=== PATIENT | female | born 2000 | race African-American/Black ===

== ENCOUNTER 2021-12-20 19:21 | Emergency (ER) | payer OTHER, SELFPAY ==
[2021-12-20 19:26] VITALS: BP 120/92; PULSE 88; RESP 16; TEMP 36.7
[2021-12-20 20:02] LABS: Basophils Percent Auto 0.3 % (0.2-1.2); Hematocrit 36.7 % (37.0-47.0); Hemoglobin 12.5 g/dL (12.0-15.0); Immature Granulocyte Absolute 0.02 K/mm3 (0.00-0.031); Immature Granulocyte Percent A 0.3 % (0-0.5); Lymphocytes Absolute Auto 1.01 K/mm3 (0.9-3.2); Lymphocytes Percent Auto 17.4 % (18.3-44.2); Mean Corpuscular HGB Conc 34.1 g/dl (32-36); Mean Corpuscular Volume 88.2 fl (80-100); Mean Platelet Volume 8.7 fl (7.4-10.4); Monocytes Absolute Auto 0.1 K/mm3 (0.1-0.6); Monocytes Percent Auto 2.2 % (2.6-8.5); Neutrophils Absolute Auto 4.6 K/mm3 (1.3-6.7); Neutrophils Percent Auto 79.8 % (45.5-73.1); Platelet Count Result 335 k/mm3 (150-375); Red Blood Count 4.16 M/mm3 (4.2-5.4); White Blood Count 5.8 K/mm3 (4.5-10.0)
[2021-12-20 20:13] LABS: Alanine Aminotransferase 20 U/L (4-35); Albumin Level 4.4 g/dL (3.5-5.1); Alkaline Phosphatase 68 U/L (38-126); Anion Gap 12 mmol/L (8-16); Aspartate Amino Transferase 33 U/L (14-36); Bilirubin,Total 0.2 mg/dL (0.2-1.3); Blood Urea Nitrogen 7 mg/dL (7-17); Calcium 9.2 mg/dL (8.4-10.2); Carbon Dioxide 18 mmol/L (22-30); Chloride 108 mmol/L (98-107); Estimated CRCL calculation 99 ml/min; Estimated Glomerular Filt Rate > 60; Glucose 173 mg/dL (65-110); Lipase 34 U/L (23-300); Potassium 3.8 mmol/L (3.4-5.0); Sodium 138 mmol/L (137-145)
[2021-12-20 21:28] VITALS: BP 134/86; PULSE 85; RESP 18; O2SAT 100
[2021-12-20 21:30] LABS: Appearance Urine Clear (Clear); Bilirubin Urine Negative (Negative); Blood Urine 1+ (Negative); Color Urine Yellow (Yellow); Glucose Urine UA 1+ mg/dL (Negative); Ketones Urine 3+ mg/dL (Negative); Leukocyte Esterase Ur Negative LEU/UL (Negative); Nitrate Urine Negative (Negative); Protein Urine Trace mg/dL (Negative); Specific Grav Ur >= 1.030 (1.001-1.035); Urobilinogen Urine 0.2 mg/dL (<2.0)
[2021-12-20 21:34] LABS: Bacteria Urine Trace /hpf; Mucus Urine Moderate /lpf; RBC Urine 0-2 /hpf (0-2); Squamous Epithelial Cell Urine Rare /hpf (Few); WBC Urine 0-3 /hpf
[2021-12-20 21:35] LABS: Add Urine Microscopic? NO
[2021-12-20] MEDS: ONDANSETRON INJ 4 MG/2 ML VIAL IV PUSH (21:53)
[2021-12-20] MEDS: SODIUM CHLORIDE 0.9% IV 1,000 ML 999 ML IV CONT (21:53)
[2021-12-20] MEDS: FAMOTIDINE 20 MG/2 ML VIAL IV PUSH (21:53)
[2021-12-20 21:55] VITALS: BP 112/94; PULSE 78; RESP 18; O2SAT 100
[2021-12-20] MEDS: diphenhydrAMINE HCl INJ 50 MG/ML VIAL 25 MG IV PUSH (22:28)
[2021-12-20] MEDS: PROCHLORPERAZINE EDISYLATE 10 MG/2 ML VIAL IV PUSH (22:28)
[2021-12-20 22:32] VITALS: BP 115/67; PULSE 85; RESP 18; O2SAT 100
--- NOTE | 2021-12-20 23:27 | ED.ABDPAIN ---
HPI - Abdominal Pain General Chief Complaint: Abdominal Pain <PRADIP Shah Last Filed: 12/21/21 01:27> Stated Complaint: abdominal pain <PRADIP Shah Last Filed: 12/21/21 01:27> Time Seen by Provider: 12/20/21 20:55 <PRADIP Shah Last Filed: 12/21/21 01:27> History of Present Illness HPI narrative: Patient is a 20-year-old female who presents for evaluation of nausea, vomiting, and epigastric pain that onset today. She states the pain is constant and does not radiate. She has been unable to keep any p.o. down today. Additionally reporting some subjective fevers. Denies sick contacts, new foods, diarrhea, constipation, blood in vomit. Has a history of similar pain, nausea, and vomiting that was attributed to marijuana use in the past. Patient does admit to smoking marijuana yesterday. States that the only thing that has worked for her in the past has been morphine. <PRADIP Shah Last Filed: 12/21/21 01:27> Related Data Allergies/Adverse Reactions: Allergies Allergy/AdvReac Type Severity Reaction Status Date / Time No Known Allergies Allergy Verified 12/20/21 21:52 <PRADIP Shah Last Filed: 12/21/21 01:27> Review of Systems Review of Systems: Gen.: Reports chills. Eyes: Denies eye pain or visual change ENT: Denies congestion Respiratory: Denies shortness of breath or cough CV: Denies chest pain or palpitations GI: Reports abdominal pain nausea, emesis. Denies diarrhea denies burning, urgency, frequency or hematuria Musculoskeletal: Denies back pain or muscle pain Neuro: Denies numbness, tingling, weakness or focal weakness Skin: Denies rash Except as documented, all other systems reviewed and negative <PRADIP Shah Last Filed: 12/21/21 01:27> All systems reviewed & are unremarkable except as noted in HPI and below <PRADIP Shah Last Filed: 12/21/21 01:27> Exam Narrative: APPEARANCE: Well appearing, no pain in distress, well-nourished. Head normocephalic and atraumatic. EYES: PERRLA/EOMI, conjunctivae clear NOSE: No nasal drainage EARS: External ear normal in appearance THROAT: Oropharynx is clear. Mucous membranes are moist. NECK: Supple. No adenopathy, no masses. RESPIRATORY: Airway patent, respirations nonlabored. Clear to auscultation bilaterally, no rales, rhonchi, wheezing. CARDIOVASCULAR: Regular rate and rhythm without murmurs, rubs, or gallops. ABDOMINAL: Mildly tender in the epigastric region, but no rebound tenderness or guarding. Normoactive bowel sounds. Soft, nontender, nondistended. No rebound tenderness or guarding. MUSCULOSKELETAL: Extremities are warm and well-perfused. Moves all extremities well. No edema. NEURO: Normal speech. No focal neurologic deficits. SKIN:: Skin is warm and dry. No rashes. PSYCHIATRIC: Normal affect/mood.. <Nayely Dunaway PA-C - Last Filed: 12/21/21 01:27> Course ECG TECHNICIAN/PA Physician Supervision I did not see this patient nor was the care plan discussed with me. I was available for evaluation and consultation, I agree with the documentation <Kai Atkins MD - Last Filed: 12/21/21 02:02> Vital Signs Vital signs: Vital Signs Temperature 36.7 C 12/20/21 19:26 Pulse Rate 88 12/20/21 19:26 Respiratory Rate 16 12/20/21 19:26 Blood Pressure 120/92 H 12/20/21 19:26 Temperature 36.7 C 12/20/21 19:26 Pulse Rate 85 12/20/21 22:32 Respiratory Rate 18 12/20/21 22:32 Blood Pressure 115/67 12/20/21 22:32 Pulse Oximetry 100 12/20/21 22:32 <Nayely Dunaway PA-C - Last Filed: 12/21/21 01:27> Vital Signs Temperature 36.7 C 12/20/21 19:26 Pulse Rate 88 12/20/21 19:26 Respiratory Rate 16 12/20/21 19:26 Blood Pressure 120/92 H 12/20/21 19:26 Temperature 36.7 C 12/20/21 19:26 Pulse Rate 85 12/20/21 22:32 Respiratory Rate 18 12/20/21 22:32 Blo
== END 2021-12-20 23:25 | disposition home or self-care (01) ==
PROVIDERS: Emergency Provider Emergency Medicine
DX: R10.13 Epigastric pain (principal); R73.9 Hyperglycemia, unspecified
CPT/HCPCS: 36415; 80053; 81003; 81025; 83690; 85025; 96361; 96374; 96375; 99284; J0780; J1200; J2405; J7030